=== PATIENT | female | born 1940 | race Caucasian/White ===

== ENCOUNTER → 2017-06-04 | Outpatient (CLI) | payer MEDICARE ==
[~2017-06-04] MED LIST: AMLO5 PO; DONE5; GLUC500 PO; Keflex500 MG PO; LANS30EC; LISI20 PO; LISI5 PO; MELO7.5 PO; METO50ER; MULVITMIND; Mag-G500 MG PO; NAMZARIC 28 MG1 EACH PO; Norco 5-325 Ta1 EACH PO; QUET25 PO; QUIN B STRONG1 EACH; TRAZ100 PO; TRAZ50 PO
[2017-06-05 10:31] LABS: Source, Urine Clean Catch
[2017-06-05 11:14] LABS: Bilirubin, Urine Neg (Neg); Blood, Urine Neg (Neg); Glucose Qualitative, Urine Neg (Neg); Ketones, Urine Neg (Neg); Leukocyte Esterase, Urine Neg (Neg); Nitrite, Urine Pos (Neg); Protein, Urine Neg (Neg); Specific Gravity, Urine 1.015 (1.003-1.022); Urobilinogen, Urine NORM (Normal)
[2017-06-05 12:48] LABS: Appearance, Urine Clear (Clear); Color, Urine Pale Yellow (P-Yellow)
[2017-06-05 20:59] LABS: Bacteria Few /hpf; Red Blood Cells, Urine Not Seen /hpf (0-2); Squamous Epithelial Cells Few /hpf (Few); White Blood Cells, Urine 0-2 /hpf (0-5)
== END ==
LOC: LAB 20:00
PROVIDERS: Internal Medicine
DX: N39.0 Urinary tract infection, site not specified (principal)
CPT/HCPCS: 81001; 87077; 87086; 87186

== ENCOUNTER → 2017-07-24 | Outpatient (CLI) | payer MEDICARE ==
[2017-07-24 16:23] LABS: Influenza A Negative (NEGATIVE); Influenza B Negative (NEGATIVE)
== END ==
LOC: LAB 12:30 → LAB SHORT 12:30
PROVIDERS: Internal Medicine
DX: M79.1 Myalgia (principal)
CPT/HCPCS: 87804

== ENCOUNTER → 2018-01-12 | Outpatient (CLI) | payer MEDICARE ==
[2018-01-13 11:30] LABS: Source, Urine Clean Catch
[2018-01-13 11:44] LABS: Bilirubin, Urine Neg (Neg); Blood, Urine Neg (Neg); Glucose Qualitative, Urine Neg (Neg); Ketones, Urine Neg (Neg); Leukocyte Esterase, Urine Neg (Neg); Nitrite, Urine Pos (Neg); Protein, Urine Neg (Neg); Urobilinogen, Urine NORM (Normal)
[2018-01-13 11:59] LABS: Color, Urine Yellow (P-Yellow)
[2018-01-13 12:00] LABS: Appearance, Urine Hazy (Clear); Bacteria Not Seen /hpf; Red Blood Cells, Urine Not Seen /hpf (0-2); Squamous Epithelial Cells Few /hpf (Few); White Blood Cells, Urine Not Seen /hpf (0-5)
[2018-01-13 12:01] LABS: Amorphous Mod (0-Heavy)
== END | disposition home or self-care (01) ==
LOC: LAB SHORT 11:50 → LAB 11:50
PROVIDERS: Internal Medicine
DX: N39.0 Urinary tract infection, site not specified (principal)
CPT/HCPCS: 81001

== ENCOUNTER 2019-07-17 21:43 | Inpatient (IN) | payer MEDICARE ==
[~2019-07-17] VITALS: Ht 157.5 cm; Wt 63.6 kg
[2019-07-17 22:48] LABS: BASOPHILS ABSOLUTE AUTO 0.07 K/mm3 (0.00-0.23); BASOPHILS PERCENT AUTO 1 % (0-2); EOSINOPHILS ABSOLUTE AUTO 0.08 K/mm3 (0.00-0.68); EOSINOPHILS PERCENT AUTO 1 % (0-6); Hematocrit 50.5 % (33.0-51.0); Hemoglobin 16.4 g/dL (11.5-16.0); IMMATURE GRAN ABSOLUTE AUTO 0.03 K/mm3 (0.00-0.10); IMMATURE GRAN PERCENT AUTO 0 % (0-1); LYMPHOCYTES PERCENT AUTO 27 % (21-46); MONOCYTES ABSOLUTE AUTO 0.83 K/mm3 (0.16-1.47); MONOCYTES PERCENT AUTO 9 % (4-13); Mean Corpuscular HGB 33.9 pg (26.0-34.0); Mean Corpuscular HGB Conc 32.5 g/dL (31.5-36.5); Mean Corpuscular Volume 104 fL (80-100); Mean Platelet Volume 12.1 fL (9.1-12.4); NEUTROPHILS ABSOLUTE AUTO 5.88 K/mm3 (1.96-9.15); NEUTROPHILS PERCENT AUTO 62 % (41-73); Platelet Count 242 K/mm3 (150-400); RDW Coefficient Variation 12.4 % (11.7-14.2); RDW Standard Deviation 48.5 fL (35.1-46.3); Red Blood Cell Count 4.84 M/mm3 (3.80-5.20); White Blood Cell Count 9.49 K/mm3 (4.00-11.30)
[2019-07-17 23:07] LABS: Albumin, Blood 4.3 g/dL (3.4-5.0); Albumin/Globulin Ratio 1.2 (0.8-1.8); Bun/Creatinine Ratio 32.1 (12.0-20.0); Calcium, Blood 9.8 mg/dL (8.5-10.1); Creatinine, Blood 3.02 mg/dL (0.40-1.00); Globulin, Blood 3.7 g/dL (2.2-4.0); Magnesium, Blood 3.3 mg/dL (1.6-2.4); Potassium, Blood 4.5 mmol/L (3.5-5.5); Troponin I 0.154 ng/mL (0.000-0.040)
[2019-07-17 23:16] LABS: Source, Urine Catheter
[2019-07-17 23:20] LABS: Blood, Urine 3+ (Neg); Glucose Qualitative, Urine Neg (Neg); Ketones, Urine 1+ (Neg); Leukocyte Esterase, Urine 1+ (Neg); Nitrite, Urine Neg (Neg); Protein, Urine 2+ (Neg); Urobilinogen, Urine NORM (Normal)
[2019-07-17 23:26] LABS: Appearance, Urine Hazy (Clear); Bilirubin, Urine 1+ (Neg); Color, Urine Yellow (P-Yellow)
[2019-07-17 23:27] LABS: Bacteria Many /hpf; Red Blood Cells, Urine 0-2 /hpf (0-2); Squamous Epithelial Cells Few /hpf (Few)
[2019-07-18 00:32] LABS: Creatine Kinase MB Index 3.4 (0.0-4.0)
--- NOTE | 2019-07-18 02:17 | NUR ---
PT ARRIVED TO ROOM PCU 9 FROM ER VIA GURNEY. PT NONVERBAL APPEARS FEARFUL. DOES NOT FOLLOW COMMANDS. SKIN CLEAR. IV PATENT. TRACE TO +1 EDEMA BLE'S. PT VERY FIDGETY. ASSESSMENT NOTED. BED ALARM ON, RAIS UP X3. CLOSE OBSV NEAR [facility].
[2019-07-18 04:14] LABS: BASOPHILS ABSOLUTE AUTO 0.07 K/mm3 (0.00-0.23); BASOPHILS PERCENT AUTO 1 % (0-2); EOSINOPHILS PERCENT AUTO 1 % (0-6); Hematocrit 47.7 % (33.0-51.0); Hemoglobin 15.2 g/dL (11.5-16.0); IMMATURE GRAN ABSOLUTE AUTO 0.03 K/mm3 (0.00-0.10); IMMATURE GRAN PERCENT AUTO 0 % (0-1); LYMPHOCYTES ABSOLUTE AUTO 2.84 K/mm3 (0.84-5.20); LYMPHOCYTES PERCENT AUTO 30 % (21-46); MONOCYTES PERCENT AUTO 7 % (4-13); Mean Corpuscular HGB 33.6 pg (26.0-34.0); Mean Corpuscular HGB Conc 31.9 g/dL (31.5-36.5); Mean Corpuscular Volume 106 fL (80-100); Mean Platelet Volume 12.5 fL (9.1-12.4); NEUTROPHILS ABSOLUTE AUTO 5.74 K/mm3 (1.96-9.15); NEUTROPHILS PERCENT AUTO 61 % (41-73); Platelet Count 228 K/mm3 (150-400); RDW Coefficient Variation 12.5 % (11.7-14.2); RDW Standard Deviation 49.1 fL (35.1-46.3); Red Blood Cell Count 4.52 M/mm3 (3.80-5.20); White Blood Cell Count 9.48 K/mm3 (4.00-11.30)
[2019-07-18 04:39] LABS: Magnesium, Blood 3.1 mg/dL (1.6-2.4)
[2019-07-18 04:42] LABS: Albumin, Blood 3.9 g/dL (3.4-5.0); Albumin/Globulin Ratio 1.1 (0.8-1.8); Bilirubin, Total 0.8 mg/dL (0.1-1.0); Bun/Creatinine Ratio 33.5 (12.0-20.0); Calcium, Blood 9.6 mg/dL (8.5-10.1); Creatinine, Blood 2.72 mg/dL (0.40-1.00); Globulin, Blood 3.5 g/dL (2.2-4.0); Phosphorus, Blood 4.4 mg/dL (2.5-4.9); Potassium, Blood 4.4 mmol/L (3.5-5.5); Total Protein, Blood 7.4 g/dL (6.4-8.2)
--- NOTE | 2019-07-18 05:05 | NUR ---
NO SIG CHANGES SINCE ARRIVAL. PT APPEARS FEARFUL WHEN TRYING TO COMMUNICATE BUT WORDS ARE INCOMPREHENSIBLE. LIES STILL, APPEARS TO BE SLEEPING WHEN LIGHTS ARE OUT AND LEFT ALONE. CLOSE OBSERVATION FROM OUTSIDE ROOM, BED ALARM IN PLACE. WILL CONT TO MONITOR, DOCUMENT ANY CHANGES, AND WILL REPORT TO DAY SHIFT RN.
--- NOTE | 2019-07-18 07:48 | NUR ---
pt laying in bed awake, tremor noted to right arm, attempts to speak but is unintellible, unable to follow instructions, lungs are clear in upper garcia, dim in bases, on r/a at this time, no cough noted, hrr, no edema noted, ppp+2, cap refill <3sec, vs stable afebrile, iv site to rfa, infusing ns at 75mls/hr, btx4, abd flat soft nontender, incont of urine and stool, attends in place, skin c/w/d, frail, stiff, but moves arms, campbell, call light in reach, reinforced how to call staff. spouce in room, very supportive.
--- NOTE | 2019-07-18 11:21 | NUR ---
will be transferring pt to medical floor, report was given to Marc CHAUDHARY, will transfer her via bed with electro plater in attendence with all her belongings. spouce in room with her, she had a bed bath. call light in reach.
--- NOTE | 2019-07-18 11:30 | NUR ---
pt was transferred to medical floor via bed with sweatband shaper and charge nurse.
--- NOTE | 2019-07-18 15:57 | NUR ---
SUMMARY PCU TRANSFER TODAY APPROX 1200. PT IS ALERT HOWEVER ORIENT TO SELF ONLY, STATE SHE HAS HX DEMENTIA LIVES @ [facility]. SHE HAS BEEN CALM @ X'S, RESTING QUIETLY, @ OTHER X'S ANXIOUS, FEARFUL ATTEMPTING OOB. HAVE PROVIDED FREQUENT REASSURANCE. BED ALARMS ON. SHE IS NPO FOR NOW/SPEECH THERAPY. SX IN ROOM FOR ORAL CARE. DR GABRIEL CHANGE IVF TO D5 @ 125 ML/HR. GFR LOW @ 18. LFTS ELEVATED, ORDER HEP PANEL & US. VSS.
--- NOTE | 2019-07-18 16:17 | NUR ---
ECHOCARDIOGRAM COMPLETED
--- NOTE | 2019-07-18 18:42 | NUR ---
PT RESTLESS, FIDGETING, ATTEMPTING TO GET OOB. & DAUGHTERS @ BEDSIDE STATE THEY FEEL THIS IS SYMPTOM OF PAIN, STATE SHE IS NORMALLY ON ORAL PAIN MED @ [facility]. AFTER DISCUSSION PRN MORPHINE 2MG IV GIVEN. PT RELAX & GO TO SLEEP.
--- NOTE | 2019-07-18 20:34 | NUR ---
PT MOVED TO ROOM 348 PER BED AND ALL PERSONAL BELONGINGS FOR NURSING CONVENIENCE. REPORT GIVEN TO JET FINN. PT RESTING COMFORTABLY IN BED.
--- NOTE | 2019-07-19 03:20 | NUR ---
SHIFT SUMMARY ASSUMED CARE OF PT AT 2100. PT IS NONVERBAL AT BASELINE DUE TO ADVANCED DEMENTIA. PT IS LETHARGIC, WHEN VITALS WERE TAKEN, PT BP WAS 96 SYSTOLIC, MORPHINE WAS GIVEN AT 1600, PT WAS ALSO HAVING PERIOD OF APENIC BREATHING AND WAS DIFFICULT TO AROUSE. CHARGE NURSE NOTIFIED AND HOSPITALIST NOTIFIED. HOSPITALIST CAME TO SEE PT, SHE STATED THAT PUTTING THE PT ON CPAP WAS INVASIVE TO WHAT THE FAMILY WANTED AND TO JUST MONITOR THE PT. PT SLEPT T/O THE NIGHT, STILL LETHARGIC AND DIFICULT TO AROUSE AT TIMES. PT OPEND EYES AND GROANED WHEN BEING CHANGED THIS AM. VITAL SIGNS IMPROVED. CRACKLES ON AUSCALTATION, HEART SOUNDS IRREGULAR. CALL LIGHT IN REACH, BED IN LOWEST POSTION, WILL CONTINUE TO MONITOR UNTIL DAYSHIFT NURSE ARRIVES.
[2019-07-19 05:39] LABS: Albumin, Blood 3.3 g/dL (3.4-5.0); Albumin/Globulin Ratio 1.1 (0.8-1.8); Bilirubin, Total 0.6 mg/dL (0.1-1.0); Bun/Creatinine Ratio 39.3 (12.0-20.0); Calcium, Blood 8.8 mg/dL (8.5-10.1); Creatinine, Blood 1.63 mg/dL (0.40-1.00); Potassium, Blood 3.8 mmol/L (3.5-5.5); Total Protein, Blood 6.3 g/dL (6.4-8.2)
[2019-07-19 08:07] LABS: HBSAG SCREEN Negative (Negative); HEP A AB, IGM Negative (Negative); HEP B CORE AB, IGM Negative (Negative); HEP C VIRUS AB <0.1 (0.0-0.9)
--- NOTE | 2019-07-19 18:12 | NUR ---
PATIENT MORE ALERT THIS AFTERNOON. STARTED ON A MS DIET AND PATIENT TOLERATED WELL. PATIENT NEEDS ASSISTANCE WITH MEALS. D51/2NS RUNNING AT 75ML/HR. PATIENT ANXIOUS AND TEARFUL AT TIMES TODAY. DENIES ANY PAIN. SKIN INTACT. VSS, ON RA. AT BEDSIDE THIS AFTERNOON. INCONTIENT OF URINE. ASSISTING TO TURN Q2 HOURS.
--- NOTE | 2019-07-20 03:39 | NUR ---
SHIFT SUMMARY NO ACUTE CHANGES NOTED T/O THE NIGHT. PT IS MORE ALERT AND STATED SHE IS MORE AT BASLINE. PT MUMBLES INCOHERENTLY AND HER MOOD IS LABILE FROM HAPPY AND SMILING TO TEARFUL AND FEARFUL. LUNG SOUNDS CLEAR, HEART SOUNDS REGULAR, PT SLEPT MOST OF THE NIGHT EXCEPT TO BE CHANGED AND REPOSITIONED. CALL LIGHT IN REACH, BED IN LOWEST POSTION, WILL CONTINUE TO MONITOR UNTIL DAYSHIFT NURSE ARRIVES.
[2019-07-20 08:12] LABS: Bun/Creatinine Ratio 30.9 (12.0-20.0); Calcium, Blood 8.7 mg/dL (8.5-10.1); Creatinine, Blood 0.97 mg/dL (0.40-1.00); Potassium, Blood 3.1 mmol/L (3.5-5.5)
--- NOTE | 2019-07-20 17:31 | NUR ---
PT WAS UP TO BEDSIDE CHAIR FOR SEVERAL HOURS THIS AFTERNOON, BECAME ANXIOUS AND TEAFUL AT ONE TIME, UNABLE TO UNDERSTAND WHAT SHE WAS TRYING TO COMMUNICATE. SPOUSE AT BEDSIDE FOR DINNER AND PT CALMER. DISCHARGE ANTICIP[facility] NO ACUTE CHANGES NOTED THIS SHIFT, WILL CONTINUE TO MONITOR AND REPORT TO ONCOMING RN.
--- NOTE | 2019-07-21 04:03 | NUR ---
SHIFT SUMMARY ASSUMED CARE PF PT AT 1900. PT IS ALERT BUT NOT ORIENTED TO ANYTHING. HEART SOUNDS REGULAR, LUNG SOUNDS CLEAR. PT MOOD IS LABILE. PT TRIED TO GET OUT OF BED SEVERAL TIMES. PT IS INCONTINENT OF BOWEL AND BLADDER. PT IS EXPECTED TO GO HOME TO [facility] TOMORROW IN THE AM. PT DID NOT SLEEP VERY WELL TONIGHT. CALL LIGHT IN REACH, BED IN LOWEST POSTION, BED ALARM ON, WILL CONTINUE TO MONITOR UNTIL DAYSHIFT NURSE ARRIVES.
[2019-07-21 05:21] LABS: Anion Gap 4 mmol/L (6-16); Blood Urea Nitrogen 20 mg/dL (8-24); Bun/Creatinine Ratio 25.3 (12.0-20.0); CO2, Blood 28 mmol/L (21-32); Calcium, Blood 8.5 mg/dL (8.5-10.1); Chloride, Blood 111 mmol/L (98-108); Creatinine, Blood 0.79 mg/dL (0.40-1.00); Glomerular Filtration Rate >60 (60-); Glucose, Blood 92 mg/dL (70-99); Magnesium, Blood 1.8 mg/dL (1.6-2.4); Potassium, Blood 3.1 mmol/L (3.5-5.5); Sodium, Blood 143 mmol/L (136-145)
[2019-07-21] MEDS ORDERED: Aspirin EC81 MG PO (11:07)
--- NOTE | 2019-07-21 12:35 | NUR ---
DISCHARGED PT DISCHARGED AND RETURNED TO [facility] VIA W/C LINDA. JET FROM [facility] IN AND EVALUATED PT THIS AM AND SPOKE WITH CRUSHER DRY GROUND MICA. TOOK 'S ORDERS WITH HER AT THAT TIME.
[2019-07-22] MEDS ORDERED: Therems-M1 EACH PO (15:09)
[2019-07-22] MEDS ORDERED: Acetaminophen-1 EAC1 PO (15:10)
[2019-07-22] MEDS ORDERED: BISA10S PR (15:10)
[2019-07-23] MEDS ORDERED: Dyazide 37.5-21 EACH PO (13:53)
[2019-07-23] MEDS ORDERED: VITAMIN B12 IM (13:55)
[2019-07-23] MEDS ORDERED: Tylenol325 MG PO (13:57)
[2019-07-23] MEDS ORDERED: ANTACID PLUS A355 M2 PO (14:02)
[2019-07-23] MEDS ORDERED: BISM87SU PO (14:03)
[2019-07-23] MEDS ORDERED: Anti-Diarrheal2 MG PO (14:04)
[2019-07-23] MEDS ORDERED: ENEMA BOTTLE1 EACH PR (14:04)
[2019-07-23] MEDS ORDERED: Phillips'400 MG/5 M PO (14:05)
[2019-07-23] MEDS ORDERED: IBUP400 PO (14:06)
[2019-07-23] MEDS ORDERED: MUCINEX600 MG PO (14:06)
[2019-07-23] MEDS ORDERED: NEBI5 PO (14:10)
[2019-07-23] MEDS ORDERED: TYLENOL ARTHRITIS PO (14:12)
[2019-07-23] MEDS ORDERED: Questran Light210 GM PO (14:13)
== END 2019-07-21 12:34 | disposition home or self-care (01) | DRG 682 ==
LOC: ER 21:43 → PCU 21:44 → MEDS 07-18 11:32 → ENPENDDIS 07-21 09:25 → MEDS 07-21 12:34
PROVIDERS: Emergency Medicine; Internal Medicine; Nurse Practitioner Acute Care; ADMIT Internal Medicine
DX: N17.9 Acute kidney failure, unspecified (principal); E43 Unspecified severe protein-calorie malnutrition; N39.0 Urinary tract infection, site not specified; E87.0 Hyperosmolality and hypernatremia; E87.6 Hypokalemia; E86.0 Dehydration; I10 Essential (primary) hypertension; F03.90 Unspecified dementia, unspecified severity, without behavioral disturbance, psychotic disturbance, mood disturbance, and anxiety; Z66 Do not resuscitate; Z74.09 Other reduced mobility; B96.20 Unspecified Escherichia coli [E. coli] as the cause of diseases classified elsewhere; R74.0 Nonspecific elevation of levels of transaminase and lactic acid dehydrogenase [LDH]; R29.6 Repeated falls; Z87.11 Personal history of peptic ulcer disease; E83.41 Hypermagnesemia
CPT/HCPCS: 36415; 51701; 71045; 76705; 80048; 80053; 80074; 81001; 82550; 82553; 83735; 84100; 84484; 85025; 87077; 87086; 87186; 92610; 93005; 93010; 93306; 96361; 96365; 96375; 97116; 97162; 97165; 97530; 99285-25; A9270-GY; C9113; G0378; J0696; J2270; J7030; J7042; J7070; J7120

== ENCOUNTER 2019-07-22 12:56 | Emergency (ER) | payer MEDICARE ==
[~2019-07-22] VITALS: Ht 160 cm; Wt 54.4 kg
[~2019-07-22 12:56] MED LIST changes: +Aspirin EC81 MG PO
[2019-07-22 14:31] LABS: BASOPHILS ABSOLUTE AUTO 0.06 K/mm3 (0.00-0.23); BASOPHILS PERCENT AUTO 1 % (0-2); EOSINOPHILS ABSOLUTE AUTO 0.22 K/mm3 (0.00-0.68); EOSINOPHILS PERCENT AUTO 3 % (0-6); Hematocrit 42.4 % (33.0-51.0); Hemoglobin 13.7 g/dL (11.5-16.0); IMMATURE GRAN ABSOLUTE AUTO 0.02 K/mm3 (0.00-0.10); IMMATURE GRAN PERCENT AUTO 0 % (0-1); LYMPHOCYTES ABSOLUTE AUTO 2.04 K/mm3 (0.84-5.20); LYMPHOCYTES PERCENT AUTO 25 % (21-46); MONOCYTES ABSOLUTE AUTO 0.69 K/mm3 (0.16-1.47); MONOCYTES PERCENT AUTO 8 % (4-13); Mean Corpuscular HGB 33.7 pg (26.0-34.0); Mean Corpuscular HGB Conc 32.3 g/dL (31.5-36.5); Mean Corpuscular Volume 104 fL (80-100); Mean Platelet Volume 13.1 fL (9.1-12.4); NEUTROPHILS ABSOLUTE AUTO 5.31 K/mm3 (1.96-9.15); NEUTROPHILS PERCENT AUTO 64 % (41-73); Platelet Count 159 K/mm3 (150-400); RDW Coefficient Variation 12.3 % (11.7-14.2); RDW Standard Deviation 47.2 fL (35.1-46.3); Red Blood Cell Count 4.07 M/mm3 (3.80-5.20); White Blood Cell Count 8.34 K/mm3 (4.00-11.30)
[2019-07-22 14:40] LABS: Alanine Aminotransfer (ALT/SGP 43 U/L (12-78); Albumin/Globulin Ratio 0.9 (0.8-1.8); Alk Phos 90 U/L (50-136); Anion Gap 5 mmol/L (6-16); Aspartate Aminotrans (AST/SGOT 39 U/L (12-37); Bilirubin, Total 0.4 mg/dL (0.1-1.0); Blood Urea Nitrogen 18 mg/dL (8-24); Bun/Creatinine Ratio 20.5 (12.0-20.0); CO2, Blood 28 mmol/L (21-32); Calcium, Blood 8.9 mg/dL (8.5-10.1); Chloride, Blood 113 mmol/L (98-108); Creatinine, Blood 0.88 mg/dL (0.40-1.00); Globulin, Blood 3.4 g/dL (2.2-4.0); Glomerular Filtration Rate >60 (60-); Glucose, Blood 118 mg/dL (70-99); Potassium, Blood 4.5 mmol/L (3.5-5.5); Sodium, Blood 146 mmol/L (136-145); Total Protein, Blood 6.4 g/dL (6.4-8.2)
[2019-07-22 14:58] LABS: Source, Urine Catheter
[2019-07-22 15:04] LABS: Bilirubin, Urine Neg (Neg); Blood, Urine Neg (Neg); Glucose Qualitative, Urine Neg (Neg); Ketones, Urine Neg (Neg); Leukocyte Esterase, Urine Neg (Neg); Nitrite, Urine Neg (Neg); Protein, Urine Neg (Neg); Specific Gravity, Urine 1.015 (1.003-1.022); Urobilinogen, Urine NORM (Normal)
[2019-07-22] MEDS ORDERED: Therems-M1 EACH PO (15:09)
[2019-07-22] MEDS ORDERED: BISA10S PR (15:10)
[2019-07-22] MEDS ORDERED: Acetaminophen-1 EAC1 PO (15:10)
[2019-07-22 15:13] LABS: Appearance, Urine Clear (Clear); Color, Urine Yellow (P-Yellow)
--- NOTE | 2019-07-22 16:58 | NUR ---
ED Palliative Care Consult for Goals of Care. Spoke with Dr Harper and discussed case. Pt has advanced dementia and family would benefit from discussion regarding goals of care. Pt is resting on gurney with family present including . Pt appears mildly anxious. Engaged in therapeutic discussion regarding goals of care. Pt lives at [facility] in [place]. Listened as family expressess concerns regarding Pt experiencing decline and her quality of life. Family reports several ER visits with Pt becoming anxious and agitated with each visit. Pt requires assistance with transfers, has been wheelchair bound the last 2 weeks, needs assistance with bathing, dressing, incontinent of bowel and bladder. Pt has not had any meaningful conversation in quite some time. Alexandray is able to put 2 to 3 words together. Discussed hospice as an option with family expressing interest. Educated family on hospice philosophy with V/U made by family. Family report they will consider further. Instructed how to start hospice process with V/U made by family. Family is agreeable with Pt dicharging back to facility. No other concerns reported at this time. PPS 50% [place] 40% ADLs 5/6 FAST 7C Pt appears appropriate for hospice and may benefit from hospice intake nurse for further evaluation. Palliative Care will remain available.
[2019-07-23] MEDS ORDERED: Dyazide 37.5-21 EACH PO (13:53)
[2019-07-23] MEDS ORDERED: VITAMIN B12 IM (13:55)
[2019-07-23] MEDS ORDERED: Tylenol325 MG PO (13:57)
[2019-07-23] MEDS ORDERED: ANTACID PLUS A355 M2 PO (14:02)
[2019-07-23] MEDS ORDERED: BISM87SU PO (14:03)
[2019-07-23] MEDS ORDERED: Anti-Diarrheal2 MG PO (14:04)
[2019-07-23] MEDS ORDERED: ENEMA BOTTLE1 EACH PR (14:04)
[2019-07-23] MEDS ORDERED: Phillips'400 MG/5 M PO (14:05)
[2019-07-23] MEDS ORDERED: IBUP400 PO (14:06)
[2019-07-23] MEDS ORDERED: MUCINEX600 MG PO (14:06)
[2019-07-23] MEDS ORDERED: NEBI5 PO (14:10)
[2019-07-23] MEDS ORDERED: TYLENOL ARTHRITIS PO (14:12)
[2019-07-23] MEDS ORDERED: Questran Light210 GM PO (14:13)
== END 2019-07-22 18:17 | disposition home or self-care (01) ==
LOC: ER 12:56
PROVIDERS: Emergency Medicine
DX: N39.0 Urinary tract infection, site not specified (principal); E86.0 Dehydration; I10 Essential (primary) hypertension; F41.9 Anxiety disorder, unspecified; F03.90 Unspecified dementia, unspecified severity, without behavioral disturbance, psychotic disturbance, mood disturbance, and anxiety; M19.90 Unspecified osteoarthritis, unspecified site; G47.00 Insomnia, unspecified; Z88.8 Allergy status to other drugs, medicaments and biological substances; Z79.82 Long term (current) use of aspirin; Z79.899 Other long term (current) drug therapy
CPT/HCPCS: 36415; 80053; 81003; 85025; 96360; 96361; 99284-25; J7030; P9612

== ENCOUNTER → 2019-10-29 | Outpatient (CLI) | payer MEDICARE ==
[~2019-10-29] MED LIST changes: +ANTACID PLUS A355 M2 PO; +Acetaminophen-1 EAC1 PO; +Anti-Diarrheal2 MG PO; +BISA10S PR; +BISM87SU PO; +Dyazide 37.5-21 EACH PO; +ENEMA BOTTLE1 EACH PR; +IBUP400 PO; +MUCINEX600 MG PO; +NEBI5 PO; +Phillips'400 MG/5 M PO; +Questran Light210 GM PO; +TYLENOL ARTHRITIS PO; +Therems-M1 EACH PO; +Tylenol325 MG PO; +VITAMIN B12 IM
[2019-10-29 19:45] LABS: Bilirubin, Urine Neg (Neg); Blood, Urine 1+ (Neg); Glucose Qualitative, Urine Neg (Neg); Ketones, Urine Neg (Neg); Leukocyte Esterase, Urine 3+ (Neg); Nitrite, Urine Pos (Neg); Protein, Urine Neg (Neg); Urobilinogen, Urine NORM (Normal)
[2019-10-29 19:54] LABS: Appearance, Urine Hazy (Clear); Color, Urine Yellow (P-Yellow)
[2019-10-29 19:55] LABS: Bacteria Mod /hpf; Mucus Light (0-Heavy); Red Blood Cells, Urine 0-2 /hpf (0-2); Squamous Epithelial Cells Mod /hpf (Few); Yeast/Fungi Urine Mod /hpf
== END | disposition home or self-care (01) ==
LOC: LAB 18:50 → LAB SHORT 18:50
PROVIDERS: Family Medicine
DX: N39.0 Urinary tract infection, site not specified (principal)
CPT/HCPCS: 81001; 87077; 87086; 87186

== ENCOUNTER → 2019-11-16 | Outpatient (CLI) | payer MEDICARE ==
[2019-11-16 19:45] LABS: BASOPHILS ABSOLUTE AUTO 0.06 K/mm3 (0.00-0.23); BASOPHILS PERCENT AUTO 1 % (0-2); EOSINOPHILS ABSOLUTE AUTO 0.19 K/mm3 (0.00-0.68); EOSINOPHILS PERCENT AUTO 3 % (0-6); Hematocrit 44.6 % (33.0-51.0); IMMATURE GRAN ABSOLUTE AUTO 0.01 K/mm3 (0.00-0.10); IMMATURE GRAN PERCENT AUTO 0 % (0-1); LYMPHOCYTES PERCENT AUTO 32 % (21-46); MONOCYTES PERCENT AUTO 8 % (4-13); Mean Corpuscular HGB 32.5 pg (26.0-34.0); Mean Corpuscular HGB Conc 31.4 g/dL (31.5-36.5); Mean Corpuscular Volume 104 fL (80-100); Mean Platelet Volume 12.7 fL (9.1-12.4); NEUTROPHILS ABSOLUTE AUTO 3.55 K/mm3 (1.96-9.15); NEUTROPHILS PERCENT AUTO 56 % (41-73); Platelet Count 127 K/mm3 (150-400); RDW Coefficient Variation 13.2 % (11.7-14.2); RDW Standard Deviation 50.5 fL (35.1-46.3); Red Blood Cell Count 4.31 M/mm3 (3.80-5.20); White Blood Cell Count 6.31 K/mm3 (4.00-11.30)
== END | disposition home or self-care (01) ==
LOC: LAB SHORT 18:21 → LAB 18:21
PROVIDERS: Family Medicine
DX: F03.90 Unspecified dementia, unspecified severity, without behavioral disturbance, psychotic disturbance, mood disturbance, and anxiety (principal); D64.9 Anemia, unspecified; D51.0 Vitamin B12 deficiency anemia due to intrinsic factor deficiency
CPT/HCPCS: 85025

== ENCOUNTER 2020-02-27 09:07 | Emergency (ER) | payer MEDICARE ==
[~2020-02-27] VITALS: Ht 167.6 cm; Wt 45.4 kg
[2020-02-27 09:43] LABS: BASOPHILS ABSOLUTE AUTO 0.04 K/mm3 (0.00-0.23); BASOPHILS PERCENT AUTO 0 % (0-2); EOSINOPHILS PERCENT AUTO 0 % (0-6); Hematocrit 48.4 % (33.0-51.0); Hemoglobin 15.5 g/dL (11.5-16.0); IMMATURE GRAN ABSOLUTE AUTO 0.08 K/mm3 (0.00-0.10); IMMATURE GRAN PERCENT AUTO 0 % (0-1); LYMPHOCYTES ABSOLUTE AUTO 1.45 K/mm3 (0.84-5.20); LYMPHOCYTES PERCENT AUTO 8 % (21-46); MONOCYTES ABSOLUTE AUTO 0.84 K/mm3 (0.16-1.47); MONOCYTES PERCENT AUTO 5 % (4-13); Mean Corpuscular HGB 33.9 pg (26.0-34.0); Mean Corpuscular Volume 106 fL (80-100); Mean Platelet Volume 12.4 fL (9.1-12.4); NEUTROPHILS ABSOLUTE AUTO 15.82 K/mm3 (1.96-9.15); NEUTROPHILS PERCENT AUTO 87 % (41-73); Platelet Count 202 K/mm3 (150-400); RDW Coefficient Variation 13.1 % (11.7-14.2); RDW Standard Deviation 51.1 fL (35.1-46.3); Red Blood Cell Count 4.57 M/mm3 (3.80-5.20); White Blood Cell Count 18.23 K/mm3 (4.00-11.30)
[2020-02-27 10:04] LABS: Albumin/Globulin Ratio 1.2 (0.8-1.8); Bilirubin, Total 0.7 mg/dL (0.1-1.0); Calcium, Blood 10.1 mg/dL (8.5-10.1); Creatinine, Blood 1.88 mg/dL (0.40-1.00); Globulin, Blood 3.4 g/dL (2.2-4.0); Potassium, Blood 5.6 mmol/L (3.5-5.5); Total Protein, Blood 7.4 g/dL (6.4-8.2)
--- NOTE | 2020-02-27 12:21 | NUR ---
INITIAL PAL CARE VISIT IN ER RM#[id number] - Referral and call received from ER professor of social work with report on pt's current status and family's expressed wishes to take pt back to [facility] memory care unit where she resides. I met with in room and assessed pt. She is nonverbal and does not open her eyes to voice or touch. She is bundled in layers of blankets, including over her head. She is frowning and some furrowing and grimacing noted. Pt's is tearful. He states his has been very depressed. Later, I confirmed with Estefani, RN at [facility], that pt had a big change in status and decline approx two months ago and they felt she was more depressed and less responsive. She has had longstanding dementia and decline prior to that. This week she has not been taking in PO nutrition, fluids and medications. She saw her PCP Dr Den Vincent on Saturday and he discontinued her Prozac and amlodipine because her BP had been very low with minimal PO intake. Pt cont to decline t/o the week and Estefani spoke to family about hospice yesterday. Pt was brought in by ambulance due to unresponsiveness this am and to establish a plan of care more in line with comfort care per 's wishes. Pt does not have any medications for comfort at [facility] other than a tylenol supp or PO OTC arthritis medications. Per staff member who read me pt's medication list, she does not have anything ordered prn anxiety. RXs recommended and written by ER Plan in place for to take RX for Roxanol and ativan to [facility] and then deliver to [facility]. [facility] will be contacted and faxed orders per Vivek in ER. I left a VM message for [facility] medical center representative, Shawna Sharma, requesting follow up and will also contact the cargo and container inspector RN this weekend. Pt's vane and gdau arrived just before pt's departure via [facility] transport. Family is grieving appropriately and expressed that they knew this time was coming. Recommended to [facility] staff and RN that Tylenol suppository be given upon her return because she has been without her PO arthritis pain medications and is showing indicators of pain/discomfort. If Tylenol is not effective, recommend giving lowest dose of Roxanol, 0.25 ml or 5mg, SL prn pain.
== END 2020-02-27 12:09 | disposition home or self-care (01) ==
LOC: ER 09:07
PROVIDERS: Emergency Medicine
DX: E86.0 Dehydration (principal); F03.90 Unspecified dementia, unspecified severity, without behavioral disturbance, psychotic disturbance, mood disturbance, and anxiety; I10 Essential (primary) hypertension; F41.9 Anxiety disorder, unspecified; Z91.041 Radiographic dye allergy status; Z79.899 Other long term (current) drug therapy; Z79.82 Long term (current) use of aspirin
CPT/HCPCS: 80053; 85025; 99285